=== PATIENT | female | born 1985 | race Two or more races ===

== ENCOUNTER → 2017-09-28 | Outpatient (REF) | payer OTHER ==
[2017-09-28 20:42] LABS: INR 1.04; PROTHROMBIN TIME 13.7 SECONDS (12.4-14.5)
[2017-09-28 20:43] LABS: PARTIAL THROMBOPLASTIN TIME 37.9 SECONDS (26.8-37.9)
[2017-09-28 20:59] LABS: FERRITIN 6 NG/ML (8-252); IRON (FE) 77 UG/DL (50-170); PERCENT SATURATION 19.4 % (13.2-45.0); TOTAL IRON BINDING CAPACITY 397 UG/DL (250-450)
== END ==
LOC: M LAB REF 17:22
DX: D50.9 Iron deficiency anemia, unspecified (principal)

== ENCOUNTER → 2018-01-14 | Outpatient (REF) | payer OTHER ==
[2018-01-14 10:59] LABS: FERRITIN 4 NG/ML (8-252); IRON (FE) 89 UG/DL (50-170); PERCENT SATURATION 23.3 % (13.2-45.0); TOTAL IRON BINDING CAPACITY 382 UG/DL (250-450)
[2018-01-14 11:13] LABS: COLLAGEN EPINEPHRINE 144 SECONDS (74-162)
[2018-01-14 12:15] LABS: VITAMIN B12 LEVEL 265 PG/ML (247-911)
[2018-01-14 12:35] LABS: FOLATE 15.1 NG/ML (>5.4)
== END ==
LOC: M ONCM 09:19
DX: D68.0 Von Willebrand disease (principal); E61.1 Iron deficiency
CPT/HCPCS: 82746

== ENCOUNTER → 2020-01-18 | Outpatient (CLI) | payer OTHER ==
[~2020-01-18] MED LIST: ADDE10CA3 PO; ALLE10TA62 PO; FLUT44IN INH; IMIT50TA PO; LEVOTAB19 PO; ORTH1TAB8 PO; PROAAER10 INH; SING10TA32 PO; ZYRT10CA PO
[2020-01-18 18:08] LABS: BASO # 0.1 10^3/uL (0.0-0.2); BASO % 0.9 % (0.0-1.0); EOS % 0.5 % (0.0-3.0); HEMATOCRIT 40.8 % (36.0-47.0); HEMOGLOBIN 13.4 g/dl (12.0-15.5); LYMPH # 1.9 10^3/uL (1.5-5.0); LYMPH % 33.2 % (24.0-44.0); MEAN CORPUSCULAR HGB CONC 32.8 g/dl (32.0-36.5); MEAN CORPUSCULAR VOLUME 94.4 fl (80.0-96.0); MONO # 0.3 10^3/uL (0.0-0.8); MONO % 5.8 % (0.0-5.0); NEUTROPHILS # 3.4 10^3/uL (1.5-8.5); NEUTROPHILS % 59.4 % (36.0-66.0); PLATELET COUNT, AUTOMATED 194 10^3/uL (150-450); RED BLOOD COUNT 4.32 10^6/uL (4.00-5.40); WHITE BLOOD COUNT 5.7 10^3/uL (4.0-10.0)
[2020-01-18 18:41] LABS: PERCENT SATURATION 29.8 % (13.2-45.0)
== END ==
LOC: M LRY 16:14
PROVIDERS: ATTEND Internal Medicine Hematology & Oncology
DX: D68.0 Von Willebrand disease (principal)